=== PATIENT | female | born 1990 | race Two or more races ===

== ENCOUNTER 2022-02-25 10:45 | Observation (INO) | payer OTHER ==
[~2022-02-25] VITALS: Ht 160 cm; Wt 75.7 kg
[2022-02-25] MEDS ORDERED: METH4PAK PO (11:33)
[2022-02-25 11:44] VITALS: BP 113/68
[2022-02-25] MEDS ORDERED: PREN-96 PO (13:16)
[2022-02-25] MEDS ORDERED: ONDANSETRON HCL 4 MG/2 ML VIAL IV STA (13:45)
[2022-02-25] MEDS ORDERED: LACTATED RINGER'S 1,000 ML IV ONE (13:45)
== END 2022-02-25 15:15 | disposition home or self-care (01) ==
LOC: ER 10:45 → LDRP 11:56
PROVIDERS: ADMIT Obstetrics & Gynecology; ATTEND Obstetrics & Gynecology
DX: O98.512 Other viral diseases complicating pregnancy, second trimester (principal); U07.1 COVID-19; O21.2 Late vomiting of pregnancy; O99.282 Endocrine, nutritional and metabolic diseases complicating pregnancy, second trimester; E86.0 Dehydration; Z3A.27 27 weeks gestation of pregnancy
CPT/HCPCS: 59025; 81002; 93005; 96361; 96374; 96375; 99285; G0378; J2405; 96365